=== PATIENT | male | born 1945 | race Caucasian/White ===

== ENCOUNTER 2017-03-03 14:33 | Inpatient (IN) | payer MEDICARE, BC ==
[~2017-03-03] VITALS: Ht 177.8 cm; Wt 70.0 kg
[2017-03-03] MEDS ORDERED: acetaminophen 325mg tablet PO STA (14:59)
[2017-03-03] MEDS ORDERED: normal saline 1000ML IV soln IV ONE (15:00)
[2017-03-03 15:48] LABS: BASOPHILS % (AUTO) 0.3 % (0-1); EOSINOPHILS % (AUTO) 0.3 % (0-6); HEMATOCRIT 36.6 % (42.0-52.0); HEMOGLOBIN 12.4 g/dl (14.0-17.9); LYMPHOCYTES # (AUTO) 0.7 X10'3 (1.1-4.8); LYMPHOCYTES % (AUTO) 8.9 % (21-51); MEAN CORPUSCULAR HEMOGLOBIN 33.7 PG (27.0-31.0); MEAN CORPUSCULAR HGB CONC 33.8 % (33.0-36.5); MEAN CORPUSCULAR VOLUME 99.8 FL (78-98); MEAN PLATELET VOLUME 7.5 FL (7.4-10.4); MONOCYTES # (AUTO) 0.8 X10'3 (0-0.9); MONOCYTES % (AUTO) 10.9 % (2-12); NEUTROPHILS # (AUTO) 5.8 X10'3 (1.8-7.7); NEUTROPHILS % (AUTO) 79.6 % (42-75); PLATELET COUNT 177 X10'3 (140-440); RED BLOOD COUNT 3.67 X10'6 (4.70-6.10); RED CELL DISTRIBUTION WIDTH 13.5 % (11.5-14.5); WHITE BLOOD COUNT 7.3 X10'3 (4.5-11.0)
[2017-03-03 16:03] LABS: ALANINE AMINOTRANSFERASE 14 U/L (12-78); ALBUMIN 3.3 G/DL (3.4-5.0); ALBUMIN/GLOBULIN RATIO 0.9 (1.1-1.5); ALKALINE PHOSPHATASE 118 IU/L (46-116); ANION GAP 11 (8-16); ASPARTATE AMINO TRANSFERASE 41 U/L (10-37); BILIRUBIN,TOTAL 0.4 MG/DL (0.1-1.0); BLOOD UREA NITROGEN 37 MG/DL (7-18); BUN/CREATININE RATIO 35.9 (5.4-32.0); CALCIUM 8.9 MG/DL (8.5-10.1); CHLORIDE 104 MMOL/L (99-107); CREATININE 1.03 MG/DL (0.60-1.10); GLUCOSE 121 MG/DL (70-104); MAGNESIUM 1.9 MG/DL (1.5-2.4); POTASSIUM 3.9 MMOL/L (3.5-5.1); SODIUM 140 MMOL/L (135-145); TOTAL CARBON DIOXIDE 24.8 MMOL/L (24-32); TOTAL PROTEIN 6.8 G/DL (6.4-8.2); eGFR 71 ML/MIN
[2017-03-03 16:11] LABS: PLATELET ESTIMATE NORMAL; TOTAL CELLS COUNTED 100
[2017-03-03] MEDS ORDERED: oseltamivir phos 75mg capsule PO ONE (17:00)
[2017-03-03] MEDS ORDERED: levoFLOXACIN-Levaquin 250mg/D5 50 ML IV ONE (17:17)
[2017-03-03 17:27] LABS: CLARITY,URINE CLEAR (Clear); COLOR,URINE YELLOW (Yellow); GLUCOSE, URINE 250 mg/dl (Neg); KETONES,URINE 15 mg/dl (Neg); LEUKOCYTE ESTERASE ,URINE NEGATIVE (Neg); NITRITES, URINE NEGATIVE (Neg); OCCULT BLOOD,URINE LARGE (Neg); PH,URINE 5.5 (4.8-8.0); PROTEIN,URINE TRACE mg/dl (Neg); UROBILINOGEN,URINE 0.2 E.U/dL (0.2-1.0)
[2017-03-03 17:32] LABS: UA COLLECTION TYPE FOLEY CATH
[2017-03-03 17:33] LABS: BACTERIA,URINE FEW /HPF (Neg); SQUAMOUS EPITHELIAL CELL,UR FEW /LPF (FEW); WBC,URINE 0-4 /HPF (0-4)
[2017-03-03 17:34] LABS: MUCUS STRANDS MODERATE /LPF (Neg)
[2017-03-03] MEDS ORDERED: metoclopramide 5 mg/ml inj IV PRN (18:05)
[2017-03-03] MEDS ORDERED: diphenhydrAMINE 50 mg/ml inj IV PRN (18:05)
[2017-03-03] MEDS ORDERED: HYDROcodone/acetaminophen 5mg/325mg tablet PO PRN (18:05)
[2017-03-03] MEDS ORDERED: acetaminophen 325mg tablet PO PRN (18:05)
[2017-03-03] MEDS ORDERED: mag hydrox/Alum hydrox/simeth 30ml oral suspension PO PRN (18:05)
[2017-03-03] MEDS ORDERED: ondansetron/PF 4mg/2ml inj IV PRN (18:05)
[2017-03-03] MEDS ORDERED: HYDROcodone/acetaminophen 10/325mg tab PO PRN (18:05)
[2017-03-03] MEDS ORDERED: HYDROmorphone 1 mg/ml syringe IV PRN ×2 (18:05)
[2017-03-03] MEDS ORDERED: bisacodyl 10mg suppository rectal RC PRN (18:05)
[2017-03-03] MEDS ORDERED: diphenhydrAMINE 25mg capsule PO PRN (18:05)
[2017-03-03] MEDS ORDERED: magnesium hydroxide 30ml (MOM) UD suspension PO PRN (18:05)
[2017-03-03 18:45] LABS: INR 1.1 INR; PARTIAL THROMBOPLASTIN TIME 30 SECONDS (22-32)
[2017-03-03] MEDS: normal saline 1000ml 1,000 ML IV SCH (18:47)
[2017-03-03] MEDS: azithromycin 250mg tablet PO SCH (18:54)
[2017-03-03 18:55] LABS: PHOSPHORUS 2.4 MG/DL (2.3-4.5)
[2017-03-03] MEDS ORDERED: temazepam 15mg capsule PO PRN (21:00)
[2017-03-03] MEDS: docusate sod 100mg capsule PO SCH (21:35)
[2017-03-03] MEDS: heparin, porcine 5000 units/ml vial SQ SCH (21:35)
[2017-03-04 00:22] VITALS: BP 154/90
[2017-03-04] MEDS: normal saline 1000ml 1,000 ML IV SCH ×2 (04:02→14:02)
[2017-03-04 06:24] LABS: BASOPHILS % (AUTO) 0.2 % (0-1); EOSINOPHILS # (AUTO) 0.1 X10'3 (0-0.9); EOSINOPHILS % (AUTO) 0.9 % (0-6); HEMATOCRIT 31.9 % (42.0-52.0); HEMOGLOBIN 10.8 g/dl (14.0-17.9); LYMPHOCYTES # (AUTO) 0.7 X10'3 (1.1-4.8); LYMPHOCYTES % (AUTO) 11.3 % (21-51); MEAN CORPUSCULAR HEMOGLOBIN 33.4 PG (27.0-31.0); MEAN CORPUSCULAR HGB CONC 33.8 % (33.0-36.5); MEAN CORPUSCULAR VOLUME 98.9 FL (78-98); MEAN PLATELET VOLUME 8.2 FL (7.4-10.4); MONOCYTES # (AUTO) 0.8 X10'3 (0-0.9); MONOCYTES % (AUTO) 12.1 % (2-12); NEUTROPHILS # (AUTO) 4.7 X10'3 (1.8-7.7); NEUTROPHILS % (AUTO) 75.5 % (42-75); PLATELET COUNT 159 X10'3 (140-440); RED BLOOD COUNT 3.23 X10'6 (4.70-6.10); RED CELL DISTRIBUTION WIDTH 13.1 % (11.5-14.5); WHITE BLOOD COUNT 6.2 X10'3 (4.5-11.0)
[2017-03-04 06:45] LABS: ALANINE AMINOTRANSFERASE 42 U/L (12-78); ALBUMIN 2.7 G/DL (3.4-5.0); ALBUMIN/GLOBULIN RATIO 0.9 (1.1-1.5); ALKALINE PHOSPHATASE 106 IU/L (46-116); ANION GAP 9 (8-16); ASPARTATE AMINO TRANSFERASE 31 U/L (10-37); BILIRUBIN,TOTAL 0.5 MG/DL (0.1-1.0); BLOOD UREA NITROGEN 18 MG/DL (7-18); BUN/CREATININE RATIO 20.7 (5.4-32.0); CHLORIDE 110 MMOL/L (99-107); CREATININE 0.87 MG/DL (0.60-1.10); GLUCOSE 104 MG/DL (70-104); POTASSIUM 3.4 MMOL/L (3.5-5.1); SODIUM 143 MMOL/L (135-145); TOTAL CARBON DIOXIDE 23.8 MMOL/L (24-32); TOTAL PROTEIN 5.7 G/DL (6.4-8.2); eGFR 86 ML/MIN
[2017-03-04 07:00] VITALS: BP 142/74
[2017-03-04] MEDS ORDERED: pantoprazole 40mg Tablet.DR PO SCH (07:30)
[2017-03-04] MEDS: heparin, porcine 5000 units/ml vial SQ SCH (08:00)
[2017-03-04] MEDS: docusate sod 100mg capsule PO SCH (08:00)
[2017-03-04] MEDS: azithromycin 250mg tablet PO SCH (08:40)
[2017-03-04 11:00] VITALS: BP 144/81
[2017-03-04] MEDS ORDERED: BUPR100T13 PO (11:32)
[2017-03-04] MEDS ORDERED: MEMA28CA PO ×2 (11:32→11:40)
[2017-03-04] MEDS ORDERED: ATOR20TA PO (11:40)
[2017-03-04] MEDS ORDERED: PROP10TA10 PO (11:40)
[2017-03-04] MEDS ORDERED: CARB1TAB43 PO (11:40)
[2017-03-04] MEDS ORDERED: buPROPion 75mg tablet PO SCH (12:00)
[2017-03-04] MEDS ORDERED: memantine hcl 7mg SR capsule (24-hr) PO SCH (12:04)
[2017-03-04] MEDS ORDERED: carbidoba-levodopa 25-100mg tablet PO SCH (13:00)
[2017-03-04] MEDS ORDERED: propranolol 10mg tablet PO SCH (20:00)
== END 2017-03-04 16:20 | disposition home or self-care (01) | DRG 871 ==
LOC: ER 14:35 → ED HOLD 18:02 → MED 3N 23:52
PROVIDERS: ADMIT Family Medicine; ATTEND Family Medicine
DX: A41.9 Sepsis, unspecified organism (principal); J18.9 Pneumonia, unspecified organism; G20 Parkinson's disease; D64.9 Anemia, unspecified; F02.80 Dementia in other diseases classified elsewhere, unspecified severity, without behavioral disturbance, psychotic disturbance, mood disturbance, and anxiety; E86.0 Dehydration; W18.30XA Fall on same level, unspecified, initial encounter; F32.9 Major depressive disorder, single episode, unspecified; J40 Bronchitis, not specified as acute or chronic; J45.909 Unspecified asthma, uncomplicated; B96.89 Other specified bacterial agents as the cause of diseases classified elsewhere; E78.5 Hyperlipidemia, unspecified; E87.6 Hypokalemia; J01.90 Acute sinusitis, unspecified; Y92.89 Other specified places as the place of occurrence of the external cause
CPT/HCPCS: 36415; 70450; 71045; 80053; 81001; 83605; 83735; 83880; 84100; 84145; 85025; 85610; 85730; 87040; 87502; 87503; 96374; 99285; A4353; J1644; J1956; J7030